=== PATIENT | female | born 2000 | race African-American/Black ===

== ENCOUNTER 2022-05-22 03:42 | Emergency (ER) | payer OTHER ==
[~2022-05-22] VITALS: Ht 160 cm; Wt 92.4 kg
[2022-05-22 03:52] VITALS: BP 142/71
== END 2022-05-22 04:40 | disposition home or self-care (01) ==
LOC: ER 03:42
DX: S60.455A Superficial foreign body of left ring finger, initial encounter (principal); W45.8XXA Other foreign body or object entering through skin, initial encounter; Y93.89 Activity, other specified; Y92.018 Other place in single-family (private) house as the place of occurrence of the external cause
CPT/HCPCS: 99281